=== PATIENT | male | born 1935 | race Caucasian/White ===

== ENCOUNTER 2019-08-14 10:09 | Inpatient (IN) | payer OTHER, SELFPAY ==
[~2019-08-14] VITALS: Ht 160 cm; Wt 68.5 kg
[~2019-08-14 10:09] MED LIST: AMLO5TAB4 PO; CALC-823 PO; DONE10TA44 PO; DULR10 RC; FLUT1DIS INH; MAALOX PO; MEMA10TA PO; MOM PO; MULT-1189 PO; PARO-63 PO; THIA100T70 PO
[2019-08-14 10:15] VITALS: BP_SYST 130
[2019-08-14 11:24] LABS: BASOPHILS % (AUTO) 0.2 % (0.0-2.0); EOSINOPHILS % (AUTO) 0.1 % (0.0-4.0); HEMATOCRIT 38.7 % (36-54); HEMOGLOBIN 12.6 g/dL (14.0-18.0); LYMPHOCYTES # (AUTO) 1.6 K/uL (1.0-5.5); LYMPHOCYTES % (AUTO) 11.1 % (20.5-51.5); MEAN CORPUSCULAR HEMOGLOBIN 29 pg (27-31); MEAN CORPUSCULAR HGB CONC 33 % (32-36); MEAN CORPUSCULAR VOLUME 91 fL (79.0-98.0); MONOCYTES # (AUTO) 0.9 K/uL (0.0-1.0); MONOCYTES % (AUTO) 6.8 % (1.7-9.3); NEUTROPHILS # (AUTO) 11.5 K/uL (1.8-7.7); NEUTROPHILS % (AUTO) 81.8 % (40.0-70.0); PLATELET COUNT (AUTO) 438 K/uL (130-430); RED BLOOD CELL COUNT(AUTO) 4.28 MIL/uL (4.2-6.2); RED CELL DISTRIBUTION WIDTH 16.1 % (9.0-15.0)
[2019-08-14 11:54] LABS: ANION GAP 9 (5-15); CALCIUM 8.6 mg/dL (8.4-11.0); CHLORIDE 112 mmol/L (98-107); CREATININE 1.06 mg/dL (0.55-1.30); GLUCOSE 132 mg/dL (70-99); POTASSIUM 3.7 mmol/L (3.5-5.1); SODIUM SERUM 145 mmol/L (136-145); UREA NITROGEN, BLOOD 32 mg/dL (8-21)
[2019-08-14 11:55] LABS: INR 1.1 (0.80-1.20); PROTHROMBIN TIME 10.9 SECS (9.5-12.5)
[2019-08-14 11:58] LABS: ALANINE AMINOTRANSFERASE 35 U/L (12-78); ALBUMIN 2.3 g/dL (3.4-4.8); ASPARTATE AMINOTRANSFERASE 24 U/L (10-37); LACTATE DEHYDROGENASE 171 U/L (85-227); TOTAL BILIRUBIN 0.4 mg/dL (0.0-1.0)
[2019-08-14 12:06] LABS: C-REACTIVE PROTEIN QUANT 21.1 mg/dL (0-0.5)
[2019-08-14] MEDS ORDERED: IPRATROPIUM/ALBUTEROL SULFATE 3 ML AMPUL.NEB (DUONEB) INH ONE (13:15)
[2019-08-14 13:47] LABS: BILIRUBIN,URINE 1+ (NEGATIVE); BLOOD, URINE 1+ (NEGATIVE); CLARITY/URINE SL CLOUDY (CLEAR); COLOR,URINE YELLOW (YELLOW); GLUCOSE,URINE TRACE (NEGATIVE); KETONES,URINE TRACE (NEGATIVE); LEUKOCYTE ESTERASE ,URINE NEGATIVE (NEGATIVE); NITRITE, URINE NEGATIVE (NEGATIVE); PH,URINE 5.5 (5.0-8.0); PROTEIN URINE 2+ (NEGATIVE)
[2019-08-14 14:31] LABS: BACTERIA,URINE FEW /HPF (None Seen); WBC,URINE 0-3 /HPF (0-3)
[2019-08-14] MEDS: NORMAL SALINE 5 ML DISP.SYRIN IVF SCH ×2 (14:49→22:08)
[2019-08-14] MEDS ORDERED: ACET-2165 PO (19:02)
[2019-08-14] MEDS ORDERED: FLEETMO RC (19:02)
[2019-08-14] MEDS ORDERED: LACT10SO6 PO (19:02)
[2019-08-14] MEDS ORDERED: LACT-47 PO (19:02)
[2019-08-14] MEDS ORDERED: DOCU-144 PO (19:02)
[2019-08-14] MEDS ORDERED: CAT.1 PO (19:02)
[2019-08-14] MEDS ORDERED: VITD2000 PO (19:02)
[2019-08-14] MEDS ORDERED: ASCO500T20 PO (19:02)
[2019-08-14] MEDS ORDERED: MEMA10TA PO (19:02)
[2019-08-14] MEDS ORDERED: ALBU2.5V7 INH (19:02)
[2019-08-14 19:58] VITALS: BP_SYST 155
[2019-08-15] MEDS: NORMAL SALINE 5 ML DISP.SYRIN IVF SCH ×3 (06:27→22:54)
[2019-08-15 06:58] LABS: BASOPHILS % (AUTO) 0.2 % (0.0-2.0); EOSINOPHILS # (AUTO) 0.1 K/uL (0.0-0.4); EOSINOPHILS % (AUTO) 0.7 % (0.0-4.0); HEMATOCRIT 37.2 % (36-54); HEMOGLOBIN 12.4 g/dL (14.0-18.0); LYMPHOCYTES # (AUTO) 1.7 K/uL (1.0-5.5); LYMPHOCYTES % (AUTO) 16.8 % (20.5-51.5); MEAN CORPUSCULAR HEMOGLOBIN 30 pg (27-31); MEAN CORPUSCULAR HGB CONC 33 % (32-36); MEAN CORPUSCULAR VOLUME 91 fL (79.0-98.0); MONOCYTES # (AUTO) 0.9 K/uL (0.0-1.0); MONOCYTES % (AUTO) 8.4 % (1.7-9.3); NEUTROPHILS # (AUTO) 7.6 K/uL (1.8-7.7); NEUTROPHILS % (AUTO) 73.9 % (40.0-70.0); PLATELET COUNT (AUTO) 415 K/uL (130-430); RED BLOOD CELL COUNT(AUTO) 4.11 MIL/uL (4.2-6.2); RED CELL DISTRIBUTION WIDTH 15.9 % (9.0-15.0); WHITE BLOOD COUNT (AUTO) 10.3 K/uL (4.8-10.8)
[2019-08-15 07:12] LABS: ANION GAP 4 (5-15); CALCIUM 8.8 mg/dL (8.4-11.0); CHLORIDE 113 mmol/L (98-107); CREATININE 1.12 mg/dL (0.55-1.30); GLUCOSE 113 mg/dL (70-99); SODIUM SERUM 144 mmol/L (136-145); UREA NITROGEN, BLOOD 34 mg/dL (8-21)
[2019-08-15] MEDS ORDERED: cefTRIAXone 1 GM in D5W 50 ML IV SCH (09:00)
[2019-08-15] MEDS ORDERED: AZITHROMYCIN 100 MG/5 ML SUSPENSION PO SCH (09:00)
[2019-08-15 10:02] VITALS: BP_SYST 149
[2019-08-15] MEDS ORDERED: FUROSEMIDE 40 MG/4 ML VIAL IVP ONE (10:30)
[2019-08-15] MEDS ORDERED: IPRATROPIUM/ALBUTEROL SULFATE 3 ML AMPUL.NEB (DUONEB) INH PRN (10:30)
[2019-08-15] MEDS ORDERED: BUDESONIDE 0.5 MG/2 ML AMPUL.NEB INH ONE (10:45)
[2019-08-15] MEDS ORDERED: ENOXAPARIN SODIUM 40 MG/0.4 ML SYRINGE SUBCUT ONE (11:00)
[2019-08-15] MEDS ORDERED: PIPERACILLIN/TAZO 3.375/DEX-IS 50 ML IV ONE (11:00)
[2019-08-15 11:03] VITALS: BP_SYST 149
[2019-08-15] MEDS: D5/0.45 NS 1,000 ML IV SCH (11:50)
[2019-08-15] MEDS: DEXAMETHASONE SOD PHOSPHATE 10 MG/ML VIAL IVP SCH (11:51)
[2019-08-15 12:21] VITALS: BP_SYST 148
[2019-08-15] MEDS ORDERED: AZITHROMYCIN 500 MG in NS 250 ML IV ONE (16:00)
[2019-08-15 16:30] VITALS: BP_SYST 124
[2019-08-15] MEDS: PIPERACILLIN/TAZO 3.375/DEX-IS 50 ML IV SCH ×2 (18:42→23:46)
[2019-08-15] MEDS: BUDESONIDE 0.5 MG/2 ML AMPUL.NEB INH SCH (19:24)
[2019-08-15 20:00] VITALS: BP_SYST 143
[2019-08-16] VITALS: BP_SYST 150
[2019-08-16 04:08] VITALS: BP_SYST 152
[2019-08-16] MEDS: PIPERACILLIN/TAZO 3.375/DEX-IS 50 ML IV SCH ×4 (06:40→23:45)
[2019-08-16] MEDS: NORMAL SALINE 5 ML DISP.SYRIN IVF SCH ×3 (06:41→21:56)
[2019-08-16] MEDS: D5/0.45 NS 1,000 ML IV SCH (06:41)
[2019-08-16 08:00] VITALS: BP_SYST 148
[2019-08-16] MEDS: BUDESONIDE 0.5 MG/2 ML AMPUL.NEB INH SCH ×2 (08:35→19:05)
[2019-08-16] MEDS: ENOXAPARIN SODIUM 40 MG/0.4 ML SYRINGE SUBCUT SCH (09:22)
[2019-08-16] MEDS: DEXAMETHASONE SOD PHOSPHATE 10 MG/ML VIAL IVP SCH (11:33)
[2019-08-16 13:22] VITALS: BP_SYST 162
[2019-08-16 16:00] VITALS: BP_SYST 142
[2019-08-16] MEDS ORDERED: AZITHROMYCIN 250 MG in NS 250 ML IV SCH (16:00)
[2019-08-16] MEDS ORDERED: hydrALAZINE HCL 20 MG/ML VIAL IVP PRN (16:45)
[2019-08-17 00:27] VITALS: BP_SYST 160
[2019-08-17] MEDS: D5/0.45 NS 1,000 ML IV SCH (03:22)
[2019-08-17] MEDS: PIPERACILLIN/TAZO 3.375/DEX-IS 50 ML IV SCH ×2 (05:52→11:14)
[2019-08-17] MEDS: NORMAL SALINE 5 ML DISP.SYRIN IVF SCH (05:52)
[2019-08-17] MEDS: BUDESONIDE 0.5 MG/2 ML AMPUL.NEB INH SCH (07:37)
[2019-08-17 08:00] VITALS: BP_SYST 147
[2019-08-17] MEDS: ENOXAPARIN SODIUM 40 MG/0.4 ML SYRINGE SUBCUT SCH (09:18)
[2019-08-17] MEDS: DEXAMETHASONE SOD PHOSPHATE 10 MG/ML VIAL IVP SCH (11:13)
[2019-08-17 11:33] VITALS: BP_SYST 141
[2019-08-17 14:42] VITALS: BP_SYST 141
[2019-08-17] MEDS ORDERED: PIPE3.379 IV (15:11)
[2019-08-17] MEDS ORDERED: AZIT500V2 IV ×2 (15:12→15:13)
== END 2019-08-17 15:40 | DRG 177 ==
LOC: SED 10:09 → STU 13:02
PROVIDERS: ADMIT Internal Medicine; ATTEND Internal Medicine
DX: J69.0 Pneumonitis due to inhalation of food and vomit (principal); J96.21 Acute and chronic respiratory failure with hypoxia; G93.41 Metabolic encephalopathy; I69.354 Hemiplegia and hemiparesis following cerebral infarction affecting left non-dominant side; Z20.828 Contact with and (suspected) exposure to other viral communicable diseases; F03.90 Unspecified dementia, unspecified severity, without behavioral disturbance, psychotic disturbance, mood disturbance, and anxiety; I10 Essential (primary) hypertension; J44.9 Chronic obstructive pulmonary disease, unspecified; K21.9 Gastro-esophageal reflux disease without esophagitis; Z88.6 Allergy status to analgesic agent; Z79.899 Other long term (current) drug therapy
CPT/HCPCS: 36415; 36600; 71045; 80048; 80053; 81000-TC; 82550-TC; 82728; 82803-TC; 83605; 83615-TC; 83880; 84484; 85025; 85379; 85384-TC; 85610-TC; 85730-TC; 86140; 86710; 87040-TC; 87081; 87086; 92610-GN; 93005; 94640; 94760; 96360; 99285; G0378; J0456; J1100; J1650; J2543; J7050; J7626; Q0144; U0003-CS